=== PATIENT | male | born 1960 | race Caucasian/White ===

== ENCOUNTER 2020-06-15 08:45 | Inpatient (IN) | payer SELFPAY ==
[~2020-06-15] VITALS: Ht 180.3 cm; Wt 95.3 kg
[~2020-06-15 08:45] MED LIST: ASPI-611 PO; PANT40TA54 PO
[2020-07-20] MEDS ORDERED: ROSU20TA31 PO (13:48)
[2020-07-20 14:59] LABS: CLARITY,URINE SLIGHTLY CLOUDY (Clear); COLOR,URINE YELLOW (Yellow); GLUCOSE, URINE NEGATIVE (Neg); KETONES,URINE NEGATIVE (Neg); LEUKOCYTE ESTERASE ,URINE SMALL (Neg); NITRITES, URINE NEGATIVE (Neg); OCCULT BLOOD,URINE NEGATIVE (Neg); PROTEIN,URINE NEGATIVE (Neg); UA COLLECTION TYPE VOIDED; UROBILINOGEN,URINE 0.2 E.U/dL (0.2-1.0)
[2020-07-20 15:00] LABS: BASOPHILS % (AUTO) 0.4 % (0-1); EOSINOPHILS # (AUTO) 0.1 X10'3 (0-0.9); EOSINOPHILS % (AUTO) 0.7 % (0-6); LYMPHOCYTES # (AUTO) 2.2 X10'3 (1.1-4.8); LYMPHOCYTES % (AUTO) 20.4 % (21-51); MEAN CORPUSCULAR HEMOGLOBIN 30.3 PG (27.0-31.0); MEAN CORPUSCULAR HGB CONC 33.5 g/dL (33.0-36.5); MEAN CORPUSCULAR VOLUME 90.7 FL (78-98); MEAN PLATELET VOLUME 7.5 FL (7.4-10.4); MONOCYTES # (AUTO) 0.4 X10'3 (0-0.9); MONOCYTES % (AUTO) 4.1 % (2-12); NEUTROPHILS # (AUTO) 7.9 X10'3 (1.8-7.7); NEUTROPHILS % (AUTO) 74.4 % (42-75); PRE OP HEMATOCRIT 42.4 % (42.0-52.0); PRE OP HEMOGLOBIN 14.2 g/dL (14.0-17.9); PRE OP PLATELET COUNT 228 X10'3 (140-440); RED BLOOD COUNT 4.67 X10'6 (4.70-6.10)
[2020-07-20 15:10] LABS: MUCUS STRANDS FEW /LPF (Neg); SQUAMOUS EPITHELIAL CELL,UR FEW /LPF (FEW)
[2020-07-20 15:11] LABS: WBC,URINE 30-50 /HPF (0-4)
[2020-07-20 15:12] LABS: BACTERIA,URINE FEW /HPF (Neg); RBC,URINE 0-2 /HPF (0-2)
[2020-07-20 15:12] LABS: PRE OP PROTIME 10.5 SECONDS (9.0-12.0)
[2020-07-20 15:14] LABS: ALBUMIN 3.9 G/DL (3.4-5.0); ALBUMIN/GLOBULIN RATIO 1.1 (1.1-1.5); ALKALINE PHOSPHATASE 65 IU/L (46-116); BLOOD UREA NITROGEN 16 MG/DL (7-18); BUN/CREATININE RATIO 15.2 (5.4-32.0); CALCIUM 8.9 MG/DL (8.5-10.1); CHLORIDE 100 MMOL/L (99-107); CREATININE 1.05 MG/DL (0.60-1.10); PRE OP ALT 27 U/L (30-65); PRE OP ANION GAP 8 (8-16); PRE OP AST 17 U/L (10-37); PRE OP BILIRUB, TOTAL 0.5 MG/DL (0.0-1.0); PRE OP GLUCOSE 92 MG/DL (70-104); PRE OP POTASSIUM 3.9 MMOL/L (3.4-5.1); PRE OP SODIUM 135 MMOL/L (135-145); TOTAL CARBON DIOXIDE 26.7 MMOL/L (24-32); TOTAL PROTEIN 7.5 G/DL (6.4-8.2); eGFR 72 ML/MIN
[2020-07-27] VITALS (17 sets, daily range): BP systolic 97–165; BP diastolic 60–99
[2020-07-27] MEDS ORDERED: famotidine 20mg tablet PO ONE (05:30)
[2020-07-27] MEDS ORDERED: ceFOXitin sod/dextrose 2g/50ml 50 ML IV ONE (05:30)
[2020-07-27] MEDS ORDERED: iohexol 300 MG/1 ML 50ml polymer ONE (06:01)
[2020-07-27] MEDS ORDERED: BUPIVAcaine/PF 2.5 mg/ml (0.25%) 30ml vial ONE ×2 (06:01→06:48)
[2020-07-27] MEDS ORDERED: LIDOcaine 1% (10mg/ml) 2ml vial ONE (06:18)
[2020-07-27] MEDS: ringers solution, lacted 1,000 ML IV SCH ×2 (06:40→11:03)
[2020-07-27] MEDS ORDERED: midazolam 2 mg/2 ml injection ONE (06:46)
[2020-07-27] MEDS ORDERED: fentaNYL /PF 50mcg/ml 5ml ampule ONE (06:47)
[2020-07-27] MEDS ORDERED: BUPIVACAINE liposomal/PF 13.3 MG/ML vial IM ONE (06:48)
[2020-07-27] MEDS ORDERED: sevoflurane 250ml liquid IH ONE (06:56)
[2020-07-27] MEDS ORDERED: dexamethasone sod phosphate 10mg/ml inj ONE (06:56)
[2020-07-27] MEDS ORDERED: ondansetron/PF 4mg/2ml inj ONE (06:56)
[2020-07-27] MEDS ORDERED: meperidine/PF 25mg/ml syringe IV PRN ×3 (07:45)
[2020-07-27] MEDS ORDERED: ringers solution, lacted 1,000 ML IV SCH (07:45)
[2020-07-27] MEDS ORDERED: acetaminophen 1,000mg/100ml IV 100 ML IV PRN (07:45)
[2020-07-27] MEDS ORDERED: morphine 2 MG/ML inj. syringe IV PRN (07:45)
[2020-07-27] MEDS ORDERED: hydrALAZINE 20mg/ml inj. IV PRN (07:45)
[2020-07-27] MEDS ORDERED: ondansetron/PF 4mg/2ml inj IV PRN (07:45)
[2020-07-27] MEDS ORDERED: labetalol 20mg/4ml (5mg/ml) syringe IV PRN (07:45)
[2020-07-27] MEDS ORDERED: morphine 4 MG/ML inj SYRINge IV PRN (07:45)
[2020-07-27] MEDS ORDERED: proCHLORperazine 10 MG/2 ml inj IV PRN (07:45)
[2020-07-27] MEDS ORDERED: LIDOcaine 2% (20mg/ml) 5ml vial ONE (07:59)
[2020-07-27] MEDS ORDERED: propofol inj 20 ML IV ONE (07:59)
[2020-07-27] MEDS ORDERED: rocuronium 10mg/ml inj IV ONE ×2 (07:59)
[2020-07-27] MEDS ORDERED: acetaminophen 1,000mg/100ml IV 100 ML IV ONE (09:33)
[2020-07-27] MEDS ORDERED: glycopyrrolate 0.2mg/ml inj ONE (09:33)
[2020-07-27] MEDS ORDERED: neostigmine methylsulfate 1 MG/ML 10ml vial ONE (09:33)
[2020-07-27] MEDS ORDERED: sugammadex 200mg/2ml injection IV ONE (09:38)
--- NOTE | 2020-07-27 09:45 | NUR ---
Received from OR via BED , accompanied by Anesthesiologist DR BALLARD and report given by Anesthesiolgist. PATIENT WAKING UP, DENIES PAIN, V/S WNL, NEUROVASCULAR CHECKS INTACT, 20G PIV LUE, SCD ON, ISLAND DRESSING AND BANDAIDS TO ABDOMEN CDI. F/C DRAININAG PINK YELLOW CLEAR URINE
--- NOTE | 2020-07-27 10:45 | NUR ---
PATIENT A&OX4, DENIES PAIN, V/S WNL, NEUROVASCULAR CHECKS INTACT, 20G PIV LUE, SCD ON, ISLAND DRESSING AND BANDAIDS TO ABDOMEN CDI. F/C DRAININAG PINK YELLOW CLEAR URINE. PATIENT TAKEN TO 345A WITH ALL BELONGINGS AND HOOKED UP TO MONITORS IN ROOM AND REPORT GIVEN TO RN WHO HAS TAKEN OVER PATIENT CARE.
--- NOTE | 2020-07-27 11:08 | NUR ---
RECEIVED PT FROM RECOVERY ROOM. SLEEPING COMFORTABLY. v/s 97/60 66, 16, O2SAT 96% ON R/A. NO S/S OF BLEEDING NOTED. WILL CONTINUE TO MONITOR PER PROTOCOL.
[2020-07-27] MEDS: HYDROcodone/acetaminophen 10/325mg tab PO PRN (15:35)
--- NOTE | 2020-07-27 18:26 | NUR ---
Problems reprioritized. Patient report given, questions answered & plan of care reviewed with LEV Mckoy. Encouraged pt to get out of bed. Pt states feeling dizzy and clammy while standing at bedside. V/S 111/66, HR 75, O2sat 96%. Resting comfortably at this time.
[2020-07-28] VITALS: BP 136/79
[2020-07-28 04:00] VITALS: BP 126/80
--- NOTE | 2020-07-28 06:12 | NUR ---
Patient in room [facility]. I have received report from LEV Mckoy and had the opportunity to ask questions and assume patient care.
[2020-07-28] MEDS: aspirin 81mg tablet.DR PO SCH (07:06)
[2020-07-28] MEDS: HYDROcodone/acetaminophen 10/325mg tab PO PRN (07:06)
[2020-07-28] MEDS: atorvastatin 20mg tablet PO SCH (07:07)
[2020-07-28] MEDS: pantoprazole 40mg Tablet.DR PO SCH (07:07)
[2020-07-28 08:00] VITALS: BP 136/81
[2020-07-28 11:00] VITALS: BP 124/83
[2020-07-28 18:00] VITALS: BP 144/89
--- NOTE | 2020-07-28 18:41 | NUR ---
Problems reprioritized. Patient report given, questions answered & plan of care reviewed with LEV Mckoy. Pt condition improving. Had a BM this morning. c/o less pain and discomfort than yesterday. Wilson cath intact, draining large amount of clear yellow urine.
[2020-07-29] VITALS: BP 142/88
[2020-07-29] MEDS: pantoprazole 40mg Tablet.DR PO SCH (07:54)
[2020-07-29] MEDS: atorvastatin 20mg tablet PO SCH (07:54)
[2020-07-29] MEDS: aspirin 81mg tablet.DR PO SCH (07:54)
[2020-07-29 08:00] VITALS: BP 144/85
[2020-07-29 11:00] VITALS: BP 142/88
--- NOTE | 2020-07-29 16:29 | NUR ---
Pt states feeling better and wanting to go home today. V/S stable, Pt had BM x3 since surgery, ambulating ad rodolfo, and tolerating diet well. DR Benton notified. New telephone order to Discharge Pt home. Pain meds provided at Dr. Benton office. Educated pt about catheter care and leg bag placement. Pt verbalize understanding.
== END 2020-07-29 17:02 | disposition home or self-care (01) | DRG 330 ==
LOC: UNDOADMIN 07-27 05:34 → PAS IN 07-27 05:34 → EDSTATUS 07-27 07:00 → PAS IN 07-27 10:38 → SUR 3N 07-27 11:22
PROVIDERS: ADMIT Surgery; ATTEND Surgery
PROC: 0T788DZ Dilation of Bilateral Ureters with Intraluminal Device, Via Natural or Artificial Opening Endoscopic (ICD-10-PCS; principal; 2020-07-27 06:56)
PROC: 0DTN4ZZ Resection of Sigmoid Colon, Percutaneous Endoscopic Approach (ICD-10-PCS; 2020-07-27 06:56)
DX: K57.32 Diverticulitis of large intestine without perforation or abscess without bleeding (principal); N32.1 Vesicointestinal fistula; N39.0 Urinary tract infection, site not specified; K63.5 Polyp of colon; Z87.440 Personal history of urinary (tract) infections; Z95.5 Presence of coronary angioplasty implant and graft; Z20.828 Contact with and (suspected) exposure to other viral communicable diseases
CPT/HCPCS: Z7506; Z7508; 36415; 76000; 80053; 81001; 82948; 85025; 85610; 85730; 86885; 86900; 86901; 86920; 87077; 87081; 87088; 87186; 87635; 93005; A4215; A4355; A4618; A7000; C1758; C1769; C9290; C9399; G0378; J0131; J0694; J1100; J2001; J2250; J2405; J2704; J2710; J3010; J3490; J7120; Q9967